=== PATIENT | female | born 1990 | race Caucasian/White ===

== ENCOUNTER 2019-01-09 08:00 | Inpatient (IN) ==
[2019-01-14] MEDS ORDERED: Famotidine 20 MG/2 ML VIAL IVP PRN (06:33)
[2019-01-14] MEDS ORDERED: Naloxone 0.4 MG/ML INJ IVP PRN ×2 (06:33→08:18)
[2019-01-14] MEDS ORDERED: Metoclopramide 10 MG/2 ML VIAL IVP PRN ×2 (06:33→12:40)
[2019-01-14] MEDS ORDERED: Clindamycin 900 MG/50 ML 900 MG/50 ML IV.SOLN IVPB ONE (06:33)
[2019-01-14] MEDS ORDERED: Ringers Solution, Lactated 1,000 ML IVC ONE (06:33)
[2019-01-14] MEDS ORDERED: Ringers Solution, Lactated 1,000 ML IVC SCH (06:45)
[2019-01-14 06:58] LABS: Basophils % 0.3 %; Eosinophils # 0.1 K/mcL (0.0-0.6); Eosinophils % 1.6 %; Hematocrit 37.2 % (35.3-44.9); Hemoglobin 12.1 g/dL (11.5-15.4); Immature Granulocytes % 0.3 % (0-4); Lymphocytes # 1.5 K/mcL (0.6-4.6); Lymphocytes % 17.7 %; Mean Corpuscular HGB Conc 32.5 g/dL (31.6-35.5); Mean Corpuscular Hemoglobin 27.9 pg (28.0-33.3); Mean Corpuscular Volume 85.7 fL (83.0-100.0); Mean Platelet Volume 11.1 fL (9.4-12.4); Monocytes # 0.6 K/mcL (0.0-1.3); Monocytes % 7.3 %; Neutrophils # 6.3 K/mcL (1.6-8.9); Platelet Count 171 K/mcL (140-400); Red Blood Count 4.34 M/mcL (3.82-4.97); Red Cell Distribution Width 13.1 % (11.5-14.5); Segmented Neutrophils % 72.8 %; White Blood Count 8.7 K/mcL (4.3-11.1)
[2019-01-14] MEDS ORDERED: Oxytocin 20 units/ LR 1000 mL 20 UNIT/1,000 ML BAG IVC ONE (07:25)
[2019-01-14] MEDS ORDERED: *HR* FentaNYL (PF) 100 MCG/2 ML VIAL ONE (07:27)
[2019-01-14] MEDS ORDERED: EPHEDrine 50 MG/ML VIAL ONE (07:27)
[2019-01-14] MEDS ORDERED: *HR* Morphine Sulfate/PF 10 MG/10 ML AMPUL ONE (07:27)
[2019-01-14] MEDS ORDERED: Ringers Solution, Lactated 1,000 ML ONE ×2 (07:28→22:34)
[2019-01-14] MEDS ORDERED: Dexamethasone 4 MG/ML VIAL ONE (07:33)
[2019-01-14] MEDS ORDERED: Ondansetron 4 MG/2 ML VIAL ONE (07:33)
[2019-01-14] MEDS ORDERED: *HR* Phenylephrine 10 MG/ML VIAL ONE (07:33)
[2019-01-14] MEDS ORDERED: *HR* Oxytocin 10 UNIT/ML VIAL IM ONE (07:34)
[2019-01-14] MEDS ORDERED: Ketorolac 30 MG/ML VIAL ONE (07:34)
[2019-01-14] MEDS ORDERED: *HR* Midazolam HCl 2 MG/2 ML VIAL ONE (07:38)
[2019-01-14] MEDS ORDERED: Morphine Sulfate 2 MG/ML SYRINGE IVP PRN (08:14)
[2019-01-14] MEDS ORDERED: Ondansetron 4 MG/2 ML VIAL IVP PRN ×2 (08:14→12:40)
[2019-01-14] MEDS ORDERED: Ibuprofen 400 MG TABLET PO PRN (08:14)
[2019-01-14] MEDS ORDERED: *HR* HYDROmorphone (PF) 1 MG/ML SYRINGE IVP PRN (08:18)
[2019-01-14] MEDS ORDERED: *HR* OxyCODONE Immed Rel 5 MG TABLET PO PRN (08:18)
[2019-01-14] MEDS ORDERED: Ondansetron 4 MG/2 ML VIAL IVP ONE (08:18)
[2019-01-14 08:29] LABS: Amphetamine Screen,Urine Negative ng/mL (Cutoff=1000); Barbiturate Screen,Urine Negative ng/mL (Cutoff=200); Benzodiazepines Screen,Urine Negative ng/mL (Cutoff=200); Cannabinoid Screen,Urine Positive ng/mL (Cutoff = 50); Cocaine Screen,Urine Negative ng/mL (Cutoff= 300); Opiate Screen,Urine Negative ng/mL (Cutoff=300); Phencyclidine Screen,Urine Negative ng/mL (Cutoff=25)
[2019-01-14] MEDS ORDERED: Lidocaine -MPF 2% 5 ML VIAL ONE (09:30)
[2019-01-14] MEDS ORDERED: Rho Immune Globulin 1,500 UNIT SYRINGE IM ONE (12:40)
[2019-01-14] MEDS ORDERED: Oxytocin 20 units/ LR 1000 mL 20 UNIT/1,000 ML BAG IVC SCH (12:40)
[2019-01-14] MEDS ORDERED: Sennosides 8.6 MG TABLET PO PRN (12:40)
[2019-01-14] MEDS ORDERED: Acetaminophen 325 MG TABLET PO PRN (12:40)
[2019-01-14] MEDS ORDERED: *HR* Nalbuphine 10 MG/ML AMPUL IV PRN (13:42)
[2019-01-14] MEDS: Ibuprofen 600 MG TABLET PO SCH (20:00)
[2019-01-14] MEDS: Simethicone 80 MG TAB.CHEW PO PRN (20:00)
[2019-01-14 22:56] LABS: Basophils % 0.2 %; Hematocrit 31.1 % (35.3-44.9); Lymphocytes % 8.3 %; Mean Corpuscular Hemoglobin 28.5 pg (28.0-33.3)
[2019-01-14 22:57] LABS: Basophils # 0.1 K/mcL (0.0-0.2); Hemoglobin 10.3 g/dL (11.5-15.4); Immature Granulocytes % 1.5 % (0-4); Lymphocytes # 2.3 K/mcL (0.6-4.6); Mean Corpuscular HGB Conc 33.1 g/dL (31.6-35.5); Mean Corpuscular Volume 86.1 fL (83.0-100.0); Mean Platelet Volume 10.8 fL (9.4-12.4); Monocytes # 1.8 K/mcL (0.0-1.3); Monocytes % 6.4 %; Neutrophils # 23.4 K/mcL (1.6-8.9); Platelet Count 276 K/mcL (140-400); Red Blood Count 3.61 M/mcL (3.82-4.97); Segmented Neutrophils % 83.6 %
[2019-01-14 23:27] LABS: Platelet Estimate Normal (Normal); Reactive Lymphocytes Present (Not Present)
[2019-01-15] MEDS ORDERED: Ringers Solution, Lactated 500 ML IVC ONE ×2 (01:31→04:45)
[2019-01-15] MEDS ORDERED: Ringers Solution, Lactated 1,000 ML ONE ×2 (02:42→08:04)
[2019-01-15] MEDS: Simethicone 80 MG TAB.CHEW PO PRN ×3 (04:23→17:53)
[2019-01-15] MEDS: Ibuprofen 600 MG TABLET PO SCH ×2 (04:23→18:20)
[2019-01-15] MEDS: *HR* OxyCODONE/APAP 5/325 TABLET PO PRN ×2 (05:06→21:06)
[2019-01-15 05:15] LABS: Eosinophils % 0.1 %; Immature Granulocytes % 1.9 % (0-4)
[2019-01-15 05:16] LABS: Basophils # 0.1 K/mcL (0.0-0.2); Basophils % 0.3 %; Hematocrit 27.6 % (35.3-44.9); Hemoglobin 8.8 g/dL (11.5-15.4); Lymphocytes # 2.4 K/mcL (0.6-4.6); Lymphocytes % 9.7 %; Mean Corpuscular HGB Conc 31.9 g/dL (31.6-35.5); Mean Corpuscular Hemoglobin 27.8 pg (28.0-33.3); Mean Corpuscular Volume 87.1 fL (83.0-100.0); Mean Platelet Volume 11.1 fL (9.4-12.4); Monocytes # 1.7 K/mcL (0.0-1.3); Monocytes % 6.9 %; Platelet Count 279 K/mcL (140-400); Red Blood Count 3.17 M/mcL (3.82-4.97); Red Cell Distribution Width 13.1 % (11.5-14.5); Segmented Neutrophils % 81.1 %; White Blood Count 25.1 K/mcL (4.3-11.1)
[2019-01-15 05:19] LABS: Neutrophils # 20.4 K/mcL (1.6-8.9)
[2019-01-15 06:11] LABS: Platelet Estimate Normal (Normal)
[2019-01-15] MEDS: Prenatal Vit/FA 1 EACH TABLET PO SCH (08:15)
[2019-01-15] MEDS ORDERED: Ringers Solution, Lactated 1,000 ML IVC SCH (08:45)
[2019-01-15] MEDS ORDERED: Prenatal Vit/FA 1 EACH TABLET PO SCH (09:00)
[2019-01-15 11:41] LABS: Hematocrit 20.8 % (35.3-44.9); Mean Corpuscular HGB Conc 32.7 g/dL (31.6-35.5); Mean Corpuscular Hemoglobin 28.6 pg (28.0-33.3); Mean Corpuscular Volume 87.4 fL (83.0-100.0); Mean Platelet Volume 11.3 fL (9.4-12.4); Platelet Count 168 K/mcL (140-400); Red Blood Count 2.38 M/mcL (3.82-4.97); Red Cell Distribution Width 13.2 % (11.5-14.5); White Blood Count 13.5 K/mcL (4.3-11.1)
[2019-01-15 11:42] LABS: Hemoglobin 6.8 g/dL (11.5-15.4)
[2019-01-15] MEDS ORDERED: Lidocaine -MPF 2% 5 ML VIAL ONE (12:15)
[2019-01-15] MEDS: 0.9 % Sodium Chloride 1,000 ML IVC SCH ×2 (12:16→21:10)
[2019-01-15] MEDS ORDERED: Bupivacaine/EPI 1:200k 0.5%PF 10 ML VIAL ONE (12:24)
[2019-01-15] MEDS ORDERED: *HR* FentaNYL (PF) 100 MCG/2 ML VIAL ONE (12:25)
[2019-01-15] MEDS ORDERED: Lidocaine -MPF 2% 2 ML VIAL ONE (12:26)
[2019-01-15] MEDS ORDERED: *HR* Propofol 200 MG/20 ML VIAL IVP ONE (12:26)
[2019-01-15] MEDS ORDERED: *HR* Succinylcholine 200 MG/10 ML VIAL IVP ONE (12:28)
[2019-01-15] MEDS ORDERED: *HR* Midazolam HCl 2 MG/2 ML VIAL ONE (12:29)
[2019-01-15] MEDS ORDERED: Ondansetron 4 MG/2 ML VIAL ONE ×2 (12:36→16:11)
[2019-01-15] MEDS ORDERED: Dexamethasone 4 MG/ML VIAL ONE (12:36)
[2019-01-15] MEDS ORDERED: *HR* PHENYLEPHRINE 1,000 MCG/10 ML SYRINGE IVP ONE (12:38)
[2019-01-15] MEDS ORDERED: Ondansetron 4 MG/2 ML VIAL IVP ONE (13:45)
[2019-01-15] MEDS ORDERED: Acetaminophen IV 1,000 MG/100 ML INFUS..BTL IVPB ONE (13:45)
[2019-01-15] MEDS ORDERED: *HR* Promethazine 25 MG/ML VIAL IVP PRN (13:45)
[2019-01-15] MEDS: *HR* HYDROmorphone (PF) 1 MG/ML SYRINGE IVP PRN ×6 (14:52→15:32)
[2019-01-15 21:55] LABS: Hematocrit 27.1 % (35.3-44.9); Mean Corpuscular HGB Conc 32.8 g/dL (31.6-35.5); Mean Corpuscular Hemoglobin 28.5 pg (28.0-33.3); Mean Corpuscular Volume 86.9 fL (83.0-100.0); Mean Platelet Volume 11.2 fL (9.4-12.4); Platelet Count 185 K/mcL (140-400); Red Blood Count 3.12 M/mcL (3.82-4.97); Red Cell Distribution Width 14.4 % (11.5-14.5); White Blood Count 18.1 K/mcL (4.3-11.1)
[2019-01-15 22:02] LABS: Hemoglobin 8.9 g/dL (11.5-15.4)
[2019-01-16] MEDS: Simethicone 80 MG TAB.CHEW PO PRN ×4 (01:56→20:57)
[2019-01-16] MEDS: *HR* OxyCODONE/APAP 5/325 TABLET PO PRN ×4 (02:41→17:27)
[2019-01-16] MEDS: 0.9 % Sodium Chloride 1,000 ML IVC SCH (05:26)
[2019-01-16] MEDS: Prenatal Vit/FA 1 EACH TABLET PO SCH (07:20)
[2019-01-16 07:22] LABS: Basophils % 0.1 %; Eosinophils # 0.1 K/mcL (0.0-0.6); Eosinophils % 0.9 %; Hematocrit 23.4 % (35.3-44.9); Hemoglobin 7.8 g/dL (11.5-15.4); Immature Granulocytes % 0.6 % (0-4); Lymphocytes # 1.4 K/mcL (0.6-4.6); Mean Corpuscular HGB Conc 33.3 g/dL (31.6-35.5); Mean Corpuscular Hemoglobin 28.4 pg (28.0-33.3); Mean Corpuscular Volume 85.1 fL (83.0-100.0); Monocytes # 0.9 K/mcL (0.0-1.3); Monocytes % 8.2 %; Neutrophils # 8.3 K/mcL (1.6-8.9); Platelet Count 175 K/mcL (140-400); Red Blood Count 2.75 M/mcL (3.82-4.97); Red Cell Distribution Width 14.6 % (11.5-14.5); Segmented Neutrophils % 77.2 %; White Blood Count 10.8 K/mcL (4.3-11.1)
[2019-01-16] MEDS: Ibuprofen 600 MG TABLET PO SCH ×2 (10:07→17:48)
[2019-01-16 18:43] LABS: Basophils % 0.2 %; Eosinophils # 0.2 K/mcL (0.0-0.6); Eosinophils % 1.5 %; Hematocrit 26.2 % (35.3-44.9); Hemoglobin 8.7 g/dL (11.5-15.4); Lymphocytes # 1.7 K/mcL (0.6-4.6); Lymphocytes % 13.7 %; Mean Corpuscular HGB Conc 33.2 g/dL (31.6-35.5); Mean Corpuscular Hemoglobin 28.4 pg (28.0-33.3); Mean Corpuscular Volume 85.6 fL (83.0-100.0); Mean Platelet Volume 10.7 fL (9.4-12.4); Monocytes # 1.1 K/mcL (0.0-1.3); Monocytes % 8.7 %; Neutrophils # 9.1 K/mcL (1.6-8.9); Platelet Count 214 K/mcL (140-400); Red Blood Count 3.06 M/mcL (3.82-4.97); Red Cell Distribution Width 14.7 % (11.5-14.5); Segmented Neutrophils % 74.9 %; White Blood Count 12.1 K/mcL (4.3-11.1)
[2019-01-16] MEDS: Acetaminophen 325 MG TABLET PO SCH (20:58)
[2019-01-16] MEDS ORDERED: Ketorolac 30 MG/ML VIAL IVP SCH (23:59)
[2019-01-17] MEDS ORDERED: *HR* OxyCODONE/APAP 7.5/325 TABLET PO PRN (01:41)
[2019-01-17] MEDS: Acetaminophen 325 MG TABLET PO SCH ×2 (03:04→08:53)
[2019-01-17] MEDS: Ibuprofen 600 MG TABLET PO SCH ×2 (06:52→13:05)
[2019-01-17] MEDS: Simethicone 80 MG TAB.CHEW PO PRN (07:59)
[2019-01-17] MEDS: Prenatal Vit/FA 1 EACH TABLET PO SCH (07:59)
[2019-01-17 08:09] VITALS: BP 109/74
[2019-01-17 08:30] LABS: Basophils % 0.5 %; Eosinophils # 0.3 K/mcL (0.0-0.6); Eosinophils % 3.3 %; Hematocrit 23.9 % (35.3-44.9); Hemoglobin 8.1 g/dL (11.5-15.4); Immature Granulocytes % 1.2 % (0-4); Lymphocytes # 1.2 K/mcL (0.6-4.6); Lymphocytes % 14.2 %; Mean Corpuscular HGB Conc 33.9 g/dL (31.6-35.5); Mean Corpuscular Hemoglobin 28.9 pg (28.0-33.3); Mean Corpuscular Volume 85.4 fL (83.0-100.0); Mean Platelet Volume 10.5 fL (9.4-12.4); Monocytes # 0.6 K/mcL (0.0-1.3); Monocytes % 6.9 %; Neutrophils # 6.4 K/mcL (1.6-8.9); Platelet Count 183 K/mcL (140-400); Red Cell Distribution Width 14.6 % (11.5-14.5); Segmented Neutrophils % 73.9 %; White Blood Count 8.6 K/mcL (4.3-11.1)
[2019-01-17] MEDS: Lanolin 7 G OINT...G. TP PRN ×2 (08:53→13:06)
[2019-01-17] MEDS ORDERED: Ibuprofen 600 MG TABLET PO SCH (17:59)
[2019-01-17] MEDS ORDERED: Acetaminophen 325 MG TABLET PO SCH (19:49)
== END 2019-01-17 14:00 | disposition home or self-care (01) | DRG 539 ==
LOC: 1NENULAB 01-14 06:30 → EDSTATUS 01-14 07:45 → 1NENUOBS 01-14 12:22
PROVIDERS: ADMIT Obstetrics & Gynecology; ATTEND Obstetrics & Gynecology